=== PATIENT | male | born 1960 | race Caucasian/White ===

== ENCOUNTER 2016-08-22 01:59 | Emergency (ER) | payer OTHER ==
[~2016-08-22] VITALS: Ht 167.6 cm; Wt 99.0 kg
[~2016-08-22 01:59] MED LIST: ASPI81TA82 PO; MAGN400T PO; METO50TA PO; SOTA80 PO
[2016-08-22 02:00] VITALS: BP 228/123; PULSE 113; RESP 18; TEMP 98.7; O2SAT 96
[2016-08-22 02:58] VITALS: BP 235/127
[2016-08-22] MEDS ORDERED: DILT300C3 PO (03:00)
[2016-08-22] MEDS ORDERED: CLINDAMYCIN INJ 600 MG in SODIUM CHLORIDE 0.9% INJ 100 ML IV ONE (04:00)
[2016-08-22] MEDS ORDERED: SODIUM CHLOR 0.9% 1000 ML INJ 1,000 ML IV ONE (04:00)
[2016-08-22] MEDS ORDERED: HYDROmorphone HCL PF 1 MG/ML VIAL IV PUSH ONE (04:00)
[2016-08-22 04:08] VITALS: BP 170/95; PULSE 89; RESP 20; O2SAT 98
--- NOTE | 2016-08-22 04:11 | PD ---
HPI Chief Complaint: Skin Problem Time Seen by Provider: 03:27 Travel History International Travel<30 days: No Contact w/Intl Traveler<30days: No Traveled to known affect area: No History of Present Illness HPI 56-year-old man, presents to the emergency department complaining of swelling and pain draining from his buttock starting on the fourth. He noticed 2 holes that it opened up and were draining a copious amount of purulent drainage. He then noticed the third hole that "her to his rectum. Drainage is somewhat stopped now. Came in tonight because of worsening pain and swelling. Some chills as well. No history of previous problems. He does have psoriasis. Patient states he believes he has a parasite is a pulled black stringy material out of the wound. History Past Medical History Narrative Medical Psoriasis A. fib/flutter, status post ablation Hypertension Obesity Social History Alcohol Use: Yes (couple drinks a day ) Tobacco Use: No Allergies-Medications (Allergen,Severity, Reaction): Coded Allergies: No Known Allergies (Unverified , 05/24/14) Reported Meds & Prescriptions Reported Meds & Active Scripts Active Reported Diltiazem CD 24 HR 300 Mg Caper 300 Mg PO DAILY Review of Systems Except as stated in HPI: all other systems reviewed are Neg Physical Exam Narrative GENERAL: 56-year-old man, anxious. SKIN: Focused skin assessment warm/dry. NECK: Trachea midline. No JVD. CARDIOVASCULAR: Regular rate and rhythm. No murmur appreciated. RESPIRATORY: No accessory muscle use. Clear to auscultation. Breath sounds equal bilaterally. GASTROINTESTINAL: Abdomen soft, non-tender, nondistended. Hepatic and splenic margins not palpable. MUSCULOSKELETAL: No obvious deformities. RECTAL: There is hyperkeratotic pink skin that looks like tamia versus psoriasis throughout the perianal area, as well as in the gluteal cleft. There is some induration on the right buttock very medially near the cleft, a with 2 areas of small ulceration. Is no active drainage. Is no clear fluctuance. There is also a tracking wound closer to the rectum. On digital rectal exam, there is no palpable fluctuant masses or other abnormality. NEUROLOGICAL: Awake and alert. No obvious cranial nerve deficits. Motor grossly within normal limits. Normal speech. PSYCHIATRIC: Little bit bizarre. Data Data Last Documented VS Vital Signs Date Time Temp Pulse Resp B/P Pulse Ox O2 Delivery O2 Flow Rate FiO2 08/22/16 04:36 20 08/22/16 04:08 89 170/95 98 08/22/16 02:00 98.7 Room Air Orders Complete Blood Count With Diff (08/22/16 03:49) Comprehensive Metabolic Panel (08/22/16 03:49) Iv Access Insert/Monitor (08/22/16 03:49) Wound Culture And Gram Stain (08/22/16 03:49) Clindamycin Inj (Cleocin Inj) (08/22/16 04:00) Hydromorphone Pf Inj (Dilaudid Pf Inj) (08/22/16 04:00) Sodium Chlor 0.9% 1000 Ml Inj (Ns 1000 M (08/22/16 04:00) Labs Laboratory Tests Test 08/22/16 03:50 White Blood Count 6.4 TH/MM3 Red Blood Count 4.38 MIL/MM3 Hemoglobin 14.0 GM/DL Hematocrit 40.9 % Mean Corpuscular Volume 93.4 FL Mean Corpuscular Hemoglobin 31.9 PG Mean Corpuscular Hemoglobin 34.1 % Concent Red Cell Distribution Width 12.8 % Platelet Count 345 TH/MM3 Mean Platelet Volume 8.4 FL Neutrophils (%) (Auto) 56.7 % Lymphocytes (%) (Auto) 28.3 % Monocytes (%) (Auto) 12.8 % Eosinophils (%) (Auto) 1.4 % Basophils (%) (Auto) 0.8 % Neutrophils # (Auto) 3.6 TH/MM3 Lymphocytes # (Auto) 1.8 TH/MM3 Monocytes # (Auto) 0.8 TH/MM3 Eosinophils # (Auto) 0.1 TH/MM3 Basophils # (Auto) 0.0 TH/MM3 CBC Comment DIFF FINAL Differential Comment Sodium Level 137 MEQ/L Potassium Level 3.7 MEQ/L Chloride Level 100 MEQ/L Carbon Dioxide Level 26.7 MEQ/L Anion Gap 10 MEQ/L Blood Urea Nitrogen 12 MG/DL Creatinine 0.71 MG/DL Estimat Glomerular Filtration 114 ML/MIN Rate Random Glucose 184 MG/DL Calcium Level 9.0 MG/DL Total Bilirubin 0.2 MG/DL Aspartate Amino Transf 114 U/L (AST/SGOT) Alanine Aminotransferase 98 U/L (ALT/SGPT) Alkaline Phosphatase 113 U/L Total Protein 7.4 GM/DL Albumin 2.8 GM/DL MDM Medical Decision Making Medical Screen Exam Complete: Yes Emergency Medical Condition: Yes Interpretation(s) LABS: CBC is unremarkable. CMP is unremarkable. Differential Diagnosis Infection, abscess, psoriasis, Tamia, other Narrative Course Medical decision making INITIAL: 56-year-old man with appears to be soft tissue infection involving his rectum on a background of either Tamia or more likely extensive plaque psoriasis. I don't see any other evidence of abscess. Recent bedside ultrasound without identifying any drainable fluid collections. He does have a secondary of wound tracks about a centimeter or so into the soft tissue. This is near the rectum but doesn't appear to be a fistula. We'll check labs, IV antibiotics, pain medicine, reassess. Diagnosis Primary Impression: Cellulitis Additional Instructions: Take antibiotics as prescribed. Apply warm compresses or take hot baths 3-4 times daily. Follow-up with your primary doctor in the next 2-4 days. Return to the emergency department for any new or worsening symptoms. Med/Other Pt SpecificInfo: Prescription(s) given Scripts Betamethasone-Clotrimazole Topical (Lotrisone Topical)1-0.05% Cream1 Applic TOPICAL BID #45 GM Ref 0 Prov:Fab Ramesh MD 08/22/16 Clindamycin 300 Mg [id number] Mg PO Q6H 10 Days Prov:Fab Ramesh MD 08/22/16 Disposition: 01 DISCHARGE HOME Condition: Stable Fab Ramesh MD Aug 22, 2016 04:11
[2016-08-22 04:24] LABS: AUTOMATED NEUTROPHIL # 3.6 TH/MM3 (1.8-7.7); BASOPHIL % 0.8 % (0.0-2.0); EOSINOPHIL # 0.1 TH/MM3 (0-0.4); EOSINOPHIL % 1.4 % (0.0-4.0); HEMATOCRIT 40.9 % (39.0-51.0); HEMO FLAGS DIFF FINAL; LYMPH % 28.3 % (9.0-44.0); LYMPHOCYTE # 1.8 TH/MM3 (1.0-4.8); MEAN CELL VOLUME 93.4 FL (80.0-100.0); MEAN CORPUSCULAR HEMOGLOBIN 31.9 PG (27.0-34.0); MEAN CORPUSCULAR HGB CONC 34.1 % (32.0-36.0); MONO % 12.8 % (0.0-8.0); NEUT % 56.7 % (16.0-70.0); PLATELET COUNT 345 TH/MM3 (150-450); RED BLOOD COUNT 4.38 MIL/MM3 (4.50-5.90); RED CELL DISTRIBUTION WIDTH 12.8 % (11.6-17.2); WHITE BLOOD COUNT 6.4 TH/MM3 (4.0-11.0)
[2016-08-22 04:37] LABS: ANION GAP 10 MEQ/L (5-15); BICARBONATE 26.7 MEQ/L (21.0-32.0); BLOOD UREA NITROGEN 12 MG/DL (7-18); CHLORIDE 100 MEQ/L (98-107); GLOMERULAR FILTRATION RATE 114 ML/MIN (>89); POTASSIUM 3.7 MEQ/L (3.5-5.1); SODIUM (NA) 137 MEQ/L (136-145)
[2016-08-22 04:40] LABS: ALKALINE PHOSPHATASE 113 U/L (45-117); ALT (GPT) 98 U/L (12-78); AST (GOT) 114 U/L (15-37); TOTAL BILIRUBIN ADULT 0.2 MG/DL (0.2-1.0)
[2016-08-22] MEDS ORDERED: LOTR15T TOPICAL (05:14)
[2016-08-22] MEDS ORDERED: CLIN1CAP6 PO (05:14)
[2016-08-22] MEDS ORDERED: HYDR-3533 PO (05:15)
[2016-08-22 05:20] VITALS: BP 167/77; PULSE 75; RESP 20; O2SAT 97
[2016-08-22 05:53] VITALS: BP 175/84
== END 2016-08-22 06:27 | disposition home or self-care (01) ==
LOC: NEPC 01:59
DX: L03.317 Cellulitis of buttock (principal); B95.61 Methicillin susceptible Staphylococcus aureus infection as the cause of diseases classified elsewhere; I48.92 Unspecified atrial flutter; I10 Essential (primary) hypertension; E66.9 Obesity, unspecified
CPT/HCPCS: 80053; 85025; 86403; 87070; 87186; 96361; 96374; 96375; 99284; J1170; J7030